=== PATIENT | female | born 2000 | race Caucasian/White ===

== ENCOUNTER → 2018-09-30 | Outpatient (CLI) | payer OTHER ==
[~2018-09-30] MED LIST: AMOX500C2; PRD20T PO
== END ==
LOC: LAB 11:19
PROVIDERS: ATTEND Nurse Practitioner Family
DX: J02.9 Acute pharyngitis, unspecified (principal)
CPT/HCPCS: 36415; 86308

== ENCOUNTER 2018-10-01 14:44 | Emergency (ER) | payer OTHER ==
[~2018-10-01] VITALS: Ht 157.5 cm; Wt 71.7 kg
[2018-10-01] MEDS ORDERED: AMOX500C2 (15:01)
--- NOTE | 2018-10-01 15:10 | ED EENT ---
History of Present Illness General Chief Complaint: Oral/Throat Problems Stated Complaint: SORE THROAT Nursing Triage Note: TO TRIAGE WITH COMPLAINTS OF SORE THROAT FOR SEVERL DAYS. HAS BEEN SEEN TWICE AT A URGENT CARE AND SENT HERE FOR POSSIBLE ABSCESS. WAS STARTED ON AMOXICILLINON WEDNESDAY AND GIVEN A ROCEPHIN SHOT YESTERDAY. MONO AND STREP BOTH NEG. IBUPORFEN 400MG TAKNE AT 1330. Source: patient Exam Limitations: no limitations History of Present Illness Date Seen by Provider: Oct 01, 2018 Time Seen by Provider: 15:08 Initial Comments To ER with a sore throat since 09/28/18. She's been seen twice at urgent care for this. She was given Rocephin shot yesterday and is currently on amoxicillin. [place] and strep were both negative at the clinic. No improvement in symptoms. Still has intermittent fevers. No cough or rhinorrhea. Timing/Duration: abrupt Severity: moderate Location: throat Associated Symptoms: No cough, No fever; sore throat Allergies and Home Medications Allergies Coded Allergies: metoclopramide (Verified Allergy, Severe, RASH, 10/01/18) Home Medications Prednisone 20 Mg Tab, 40 MG PO DAILY Prescribed by: BROCK ANDRADE on 10/01/18 1521 Patient Home Medication List Home Medication List Reviewed: Yes Review of Systems Review of Systems Constitutional: see HPI Eyes: No Symptoms Reported Ears: No Symptoms Reported Nose: no symptoms reported Mouth: no symptoms reported Throat: see HPI, pain Respiratory: no symptoms reported Cardiovascular: no symptoms reported Musculoskeletal: no symptoms reported Skin: no symptoms reported Neurological: No Symptoms Reported Past Jtymtyw-Hkglad-Rfukeg Hx Patient Social History Alcohol Use: Denies Use Recreational Drug Use: No Smoking Status: Never a Smoker Recent Foreign Travel: No Contact w/Someone Who Travel: No Recent Infectious Disease Expo: No Recent Hopitalizations: No Seasonal Allergies Seasonal Allergies: No Past Medical History Surgeries: Yes (SALIVA GLAND MOVED, DENTAL) Respiratory: No Cardiac: No Neurological: No : No Last Menstrual Period: Sep 24, 2018 Genitourinary: No Gastrointestinal: No Musculoskeletal: No Endocrine: No HEENT: No Cancer: No Psychosocial: No Integumentary: No Physical Exam Vital Signs Vital Signs - First Documented 10/01/18 14:45 Temp 102.0 Pulse 134 Resp 18 B/P (MAP) 123/74 (90) Pulse Ox 98 O2 Delivery Room Air Height, Weight, BMI Height: 5'2.00" Weight: 158lbs. oz. 71.799616sc; BMI Method:Stated General Appearance: WD/WN, no apparent distress Eyes: bilateral eye normal inspection, bilateral eye PERRL, bilateral eye EOMI Ears: bilateral ear auricle normal, bilateral ear canal normal, bilateral ear TM normal Mouth/Throat: other (pharyngeal erythema, tonsillar erythema and exudate. No obvious peritonsillar exam on clinical exam.) Neck: non-tender, full range of motion, lymphadenopathy (R), lymphadenopathy (L ) Respiratory: no respiratory distress, no accessory muscle use Gastrointestinal: normal bowel sounds, non tender Neurologic/Psychiatric: alert, normal mood/affect, oriented x 3 Skin: normal color, warm/dry Progress/Results/Core Measures Results/Orders My Orders Orders - BROCK ANDRADE APRN Ct Neck (Soft Tissue) Wo (10/01/18 15:05) Dexamethasone Injection (Decadron Inject (10/01/18 15:15) Medications Given in ED Current Medications Medications Dose Ordered Sig/Ember Route Start Time Stop Time Status Last Admin Dose Admin Dexamethasone Sodium Phosphate 10 mg ONCE ONCE IM 10/01/18 15:15 10/01/18 15:16 DC 10/01/18 15:27 10 MG Vital Signs/I&O 10/01/18 14:45 Temp 102.0 Pulse 134 Resp 18 B/P (MAP) 123/74 (90) Pulse Ox 98 O2 Delivery Room Air Blood Pressure Mean: 90 Diagnostic Imaging Diagonstic Imaging: CT Comments NAME: [facility] REC#: [id number] PT STATUS: REG ER : 2000 PHYSICIAN: BROCK ANDRADE APRN ADMIT DATE: 10/01/18/ER Draft Date of Exam:10/01/18 CT NECK (SOFT TISSUE) WO PROCEDURE: CT neck soft tissue without contrast. TECHNIQUE: Multiple contiguous axial images were obtained through the neck without the use of intravenous contrast. INDICATION: Sore throat getting worse difficulty swallowing. FINDINGS: There is some prominence of the pharyngeal tissues, adenoidal and lingular tonsils, suggestive of inflammatory process. The epiglottis and epiglottic folds, however, are normal. The vocal folds were held in near apposition. The infraglottic trachea appears widely patent. The prevertebral and retropharyngeal spaces appear unremarkable. No fluid collection or abscess is apparent. No bony destructive process. IMPRESSION: [place] and adenoidal tonsillar hypertrophy with some ossicle with the suggestion of oropharyngeal edema and swelling, suggestive of an element of pharyngitis. No abscess or drainable fluid collection is found. The epiglottis is normal The larynx and trachea appear unremarkable. No fluid collection or abscess. No acute bony abnormality. Mucus retention cyst in the left maxillary but no paranasal sinusitis. Dictated on workstation # [id number] Dict: 10/01/18 1520 Trans: 10/01/18 1527 [facility] [id number] Interpreted by: JONAH HEREDIA Electronically signed by: Departure Impression Primary Impression: Acute tonsillitis Qualified Codes: J03.90 - Acute tonsillitis, unspecified Disposition: 01 HOME, SELF-CARE Condition: Stable Departure-Patient Inst. Decision time for Depature: 15:11 Referrals: NO,LOCAL PHYSICIAN (PCP/Family) Primary Care Physician Patient Instructions: Sore Throat in Adults Add. Discharge Instructions: 1. continue taking the amoxicillin 2. Start the steroids as directed today. 3. Return to ER for any concerns All discharge instructions reviewed with patient and/or family. Voiced understanding. Scripts Prednisone (Prednisone) 20 Mg Tab 40 MG PO DAILY, #6 TAB Prov: BROCK ANDRADE APRN 10/01/18 Work/School Note: Work Release Form Date Seen in the Emergency Department: Oct 01, 2018 Return to Work: Oct 04, 2018 BROCK ANDRADE APRN Oct 01, 2018 15:10
[2018-10-01] MEDS ORDERED: DEXAMETHASONE 10 MG/ML (DECADRON) 1 ML VIAL IM ONE (15:15)
[2018-10-01] MEDS ORDERED: PRD20T PO (15:21)
--- NOTE | 2018-10-01 15:27 | Diagnostic Imaging Report ---
PROCEDURE: CT neck soft tissue without contrast. TECHNIQUE: Multiple contiguous axial images were obtained through the neck without the use of intravenous contrast. INDICATION: Sore throat getting worse difficulty swallowing. FINDINGS: There is some prominence of the pharyngeal tissues, adenoidal and lingular tonsils, suggestive of inflammatory process. The epiglottis and epiglottic folds, however, are normal. The vocal folds were held in near apposition. The infraglottic trachea appears widely patent. The prevertebral and retropharyngeal spaces appear unremarkable. No fluid collection or abscess is apparent. No bony destructive process. IMPRESSION: [place] and adenoidal tonsillar hypertrophy with some ossicle with the suggestion of oropharyngeal edema and swelling, suggestive of an element of pharyngitis. No abscess or drainable fluid collection is found. The epiglottis is normal The larynx and trachea appear unremarkable. No fluid collection or abscess. No acute bony abnormality. Mucus retention cyst in the left maxillary but no paranasal sinusitis. Dictated by: Dictated on workstation # [id number]
[2018-10-01] MEDS ORDERED: ACETAMINOPHEN 500 MG TAB (TYLENOL) ONE (16:00)
[2018-10-01 16:11] VITALS: BP 142/81
--- OUTSIDE RECORDS SUMMARY | 2018-10-01 21:44 | XMS REPORT ---
Author Author [facility] Medical Staff Organization [facility] Address [address] [place] [id number] Phone [phone] Summary purpose CCDA Sent to [facility] Chief Complaint and Reason for Visit No authorized Reason for Visit (Admitting Diagnosis) is available for this visit. Problem list No authorized problems tracked for continuity of care are available for this visit. Encounters No authorized problems tracked for encounter diagnoses are available for this visit. Medications No medications recorded for this patient visit Allergies, adverse reactions, alerts No allergy information is available for this patient. Immunizations No immunizations recorded for this patient visit Relevant diagnostic tests and/or laboratory data RESULTS Reference [facility] [id number] [place] Amp Probe See Manual Report GC Amp Probe See Manual Report History of procedures Procedure Code Code Type Description Date Performed Performing Physician 54248 CPT-4 CHYLMD TRACH, DNA, AMP PROBE 03-27-2016 MARION PACE 92463 CPT-4 N.GONORRHOEAE, DNA, AMP PROB 03-27-2016 NOLANDIChristel PACE Functional status No functional or cognitive status observations are available for this visit. Vital signs No authorized vital signs are available for this visit. Social history No Social History or smoking status observations were recorded for this visit. ( Unknown if ever smoked.) Treatment Plan No treatment plan text is available for this visit. Hospital discharge instructions No discharge instruction text is available for this visit.
--- OUTSIDE RECORDS SUMMARY | 2018-10-01 21:44 | XMS REPORT ---
Author Author Senthil Barron [facility] Address [address] [place], [place] [id number] Care Team Providers Care Cotton Buyer Name Role Phone Senthil Barron PCP Allergies and Adverse Reactions Name Reaction Notes Reglan Plan of Treatment Not available. Medications Active Name Start Date Estimated Completion Date SIG Comments Tri-Sprintec (28) 0.18/0.215/0.25 mg-35 mcg (28) oral tablet take 1 tablet by oral route once daily Name Start Date Expiration Date SIG Comments Elimite 5 % topical cream 07/03/2017 07/05/2017 apply (thoroughly massage into skin from head to soles of feet) by topical route once leave on for 8-14 hr , then remove by thorough washing for 1 day clindamycin HCl 300 mg oral capsule take 1 capsule (300 mg) by oral route every 6 hours Tylenol-Codeine #3 300-30 mg oral tablet take 1 tablet by oral route every 6 hours as needed Uristat 95 mg oral tablet sulfamethoxazole-trimethoprim 800-160 mg oral tablet 08/09/2017 take 1 tablet by oral route every 12 hours for 7 days Diflucan 150 mg oral tablet 08/10/2017 take 1 tablet (150 mg) by oral route once for 1 day sulfamethoxazole-trimethoprim 800-160 mg oral tablet 04/06/2018 04/13/2018 take 1 tablet by oral route every 12 hours for 7 days Discontinued Name Start Date Discontinued Date SIG Comments amoxicillin 500 mg oral tablet 10/07/2016 07/03/2017 Take 2 tablets by mouth BID for 7 days Problem List Not available. Vital Signs Date Time BP-Sys(mm[Hg] BP-Betsy(mm[Hg]) HR(bpm) RR(rpm) Temp WT HT HC BMI BSA BMI Percentile O2 Sat(%) 09/01/2018 8:13:00 AM 108 mmHg 68 mmHg 77 bpm 14 rpm 97.9 F 161 lbs 63 in 28.5196 kg/m 1.8017 m 100 % 06/02/2018 8:38:00 AM 110 mmHg 64 mmHg 82 bpm 16 rpm 98.8 F 160 lbs 63 in 28.34 kg/m2 1.80 m2 0 % 99 % 04/06/2018 9:11:00 AM 118 mmHg 74 mmHg 79 bpm 18 rpm 98.6 F 157.125 lbs 63 in 27.8332 kg/m 1.7799 m 0 % 100 % 08/09/2017 5:06:00 PM 118 mmHg 72 mmHg 88 bpm 14 rpm 98.3 F 159.25 lbs 62 in 29.13 kg/m2 1.78 m2 92.2 % 96 % 07/12/2017 3:00:00 PM 124 mmHg 64 mmHg 91 bpm 18 rpm 98.5 F 160 lbs 63 in 28.3424 kg/m 1.7961 m 90.8 % 99 % 07/09/2017 5:42:00 PM 134 mmHg 72 mmHg 93 bpm 18 rpm 99 F 159 lbs 63 in 28.17 kg/m2 1.79 m2 90.5 % 99 % 07/03/2017 1:36:00 PM 110 mmHg 66 mmHg 75 bpm 18 rpm 98.1 F 160.375 lbs 63 in 28.4089 kg/m 1.7982 m 91 % 100 % 10/07/2016 6:14:00 PM 110 mmHg 70 mmHg 78 bpm 20 rpm 99.4 F 159.125 lbs 62 in 29.104 kg/m 1.78 m2 92.9 % 99 % Social History Name Description Comments Tobacco Never smoker Alcohol Never History of Procedures Date Ordered Description Order Status 10/18/2016 10:02 PM STREP A ASSAY W/OPTIC Reviewed 07/04/2017 12:00 AM INFLUENZA VIRUS VACCINE SPLIT VIRUS 3/> YRS IM Reviewed 07/04/2017 12:00 AM TETANUS VACCINE IM Reviewed 07/04/2017 12:00 AM VACCINE TOXOID Reviewed 07/04/2017 12:00 AM TETANUS VACCINE IM Reviewed 07/04/2017 12:00 AM VACCINE TOXOID Reviewed 07/03/2017 12:00 AM HPV VACCINE 4 VALENT IM Reviewed 08/09/2017 5:27 PM URINALYSIS AUTO W/O SCOPE Reviewed 04/06/2018 9:15 AM URINALYSIS AUTO W/O SCOPE Reviewed 04/06/2018 12:00 AM URINE BACTERIA CULTURE Reviewed 06/02/2018 12:00 AM URINALYSIS AUTO W/SCOPE Reviewed 06/02/2018 12:[address] ABD & PELVIS W/O CONTRAST Reviewed Results Summary Date and Description Results 10/18/2016 10:02 PM STREPTOCOCCUS, GROUP A CULTURE Negative 08/09/2017 5:27 PM Clarity Ur clear Urine-Color orange Glucose Ur-sCnc 100 Bilirub Ur Ql small Ketones Ur Ql Strip trace Sp Gr Ur Qn 1.020 Hgb Ur Ql Strip neg pH Ur-LsCnc 6.0 Prot Ur Ql Strip 30mg/dl Urobilinogen Ur-mCnc 1.0 Nitrite Ur Ql Strip positive WBC # Ur small 04/06/2018 9:15 AM Glucose Ur-sCnc Negative Bilirub Ur Ql Negative Ketones Ur Ql Strip Negative Sp Gr Ur Qn 1.020 Hgb Ur Ql Strip Moderate pH Ur-LsCnc 5.5 Prot Ur Ql Strip Negative Urobilinogen Ur-mCnc 0.2 Nitrite Ur Ql Strip Negative WBC # Ur Large 06/02/2018 1:35 PM COLOR YELLOW APPEARANCE CLEAR SPEC GRAV >=1.030 pH 5.5 PROTEIN NEGATIVE GLUCOSE NEGATIVE KETONE NEGATIVE BILIRUBIN NEGATIVE BLOOD NEGATIVE NITRITE NEGATIVE LEUK SCREEN NEGATIVE WBC/HPF RARE RBC/HPF NEGATIVE CASTS/LPF NEGATIVE CRYSTALS NEGATIVE MUCOUS THRDS NEGATIVE BACTERIA NEGATIVE EPITH CELLS FEW SQUAMOUS TRICHOMONAS NEGATIVE YEAST NEGATIVE CULT SET UP? NO History Of Immunizations Name Date Admin Mfg Name Mfg Code Trade Name Lot# Route Inj Vis Given Vis Pub CVX Influenza 07/04/2017 Other check examiner OT Flulaval quadrivalent [id number] Intramuscular Right Deltoid 07/06/2017 03/29/2015 158 HPV 07/06/2017 [employer] MSD Gardasil 9 [id number] Intramuscular Left Deltoid 07/06/2017 07/24/2016 165 History of Past Illness Name Date of Onset Comments No significant medical history Pharyngitis Oct 07 2016 6:16PM Body aches Oct 07 2016 6:16PM Scabies Jul 03 2017 1:43PM Encounter for administration of vaccine Jul 03 2017 1:43PM Abscess Jul 09 2017 5:44PM Follow up Jul 12 2017 3:02PM Cellulitis of hand Jul 12 2017 3:02PM Dysuria Aug 09 2017 5:11PM Right upper quadrant abdominal pain Aug 09 2017 5:11PM UTI (urinary tract infection) Aug 09 2017 5:11PM UTI (urinary tract infection) Apr 06 2018 9:13AM UTI (urinary tract infection) Jun 02 2018 8:40AM Hematuria Jun 02 2018 8:40AM History of UTI Sep 01 2018 8:16AM Payers Insurance Name Company Name Plan Name Plan Number Policy Number Policy Group Number Start Date Aetna Aetna [id number] N/A History of Encounters Visit Date Visit Type Provider 09/01/2018 Office visit Senthil Barron MD 06/02/2018 Office visit Senthil Barron MD 04/06/2018 Office visit Montserrat Guillory APRN 08/09/2017 Office visit Montserrat Guillory APRN 07/12/2017 Office visit Ryder Gentile APRN 07/09/2017 Office visit Ryder Gentile APRN 07/03/2017 Office visit 07/03/2017 Office visit Montserrat Guillory APRN 10/07/2016 Office visit Maira Cruz APRN
--- OUTSIDE RECORDS SUMMARY | 2018-10-01 21:44 | XMS REPORT ---
Author Author [facility] Medical Staff Organization [facility] Address [address] [place] [id number] Phone [phone] Care Team Providers Care Kiln Firer Helper Name Role Phone MARION ESQUIVEL PP [phone] Summary purpose CCDA Sent to [facility] Chief Complaint and Reason for Visit No [...] visit Relevant diagnostic tests and/or laboratory data No authorized results are available for this patient visit History of procedures Procedure Code Code Type Description Date Performed Performing Physician 94163 CPT-4 CULTURE, BACTERIA, OTHER 02-24-2017 MARION PACE 93081 CPT-4 SMEAR, GRAM STAIN 02-24-2017 MARION PACE Functional status No functional or cognitive [...]
--- OUTSIDE RECORDS SUMMARY | 2018-10-01 21:45 | XMS REPORT ---
Author Author Montserrat Guillory [facility] Address [address] [place], [place] [address] Care Team Providers Care Educational Resource Coordinator Name Role Phone Montserrat Guillory PCP Allergies and Adverse Reactions Name Reaction Notes Reglan Plan of Treatment Planned Activity Comments Planned Date Planned Time Plan/Goal Urine culture and sensitivity 04/06/2018 12:00 AM Medications Active Name Start Date Estimated Completion Date SIG Comments Tri-Sprintec (28) 0.18/0.215/0.25 mg-35 mcg (28) oral tablet take 1 tablet by oral route once daily sulfamethoxazole-trimethoprim 800-160 mg oral tablet 04/06/2018 04/13/2018 take 1 tablet by oral route every 12 hours for 7 days Name Start Date Expiration Date SIG Comments [...] by oral route once for 1 day Discontinued Name Start Date Discontinued Date SIG Comments amoxicillin 500 mg oral tablet 10/07/2016 07/03/2017 Take 2 tablets by mouth BID for 7 days Problem List Not available. Vital Signs Date Time BP-Sys(mm[Hg] BP-Betsy(mm[Hg]) HR(bpm) RR(rpm) Temp WT HT HC BMI BSA BMI Percentile O2 Sat(%) 04/06/2018 9:11:00 AM 118 mmHg 74 mmHg [...] rpm 98.5 F 160 lbs 63 in 28.34 kg/m2 1.80 m2 90.8 % 99 % 07/09/2017 5:42:00 PM 134 mmHg 72 mmHg 93 bpm 18 rpm 99 F 159 lbs 63 in 28.1653 kg/m 1.7905 m 90.5 % 99 % 07/03/2017 1:36:00 PM 110 mmHg 66 mmHg 75 bpm 18 rpm 98.1 F 160.375 lbs 63 in 28.41 kg/m2 1.80 m2 91 % 100 % 10/07/2016 6:14:00 PM 110 mmHg 70 mmHg 78 bpm 20 rpm 99.4 F 159.125 lbs 62 in 29.104 kg/m 1.7769 m 92.9 % 99 % Social History Name [...] 9:15 AM URINALYSIS AUTO W/O SCOPE Reviewed Results Summary Date and Description Results [...] Ql Strip Negative WBC # Ur Large History Of Immunizations Name Date Admin Mfg Name Mfg Code Trade Name Lot# Route Inj Vis Given Vis Pub CVX Influenza 07/04/2017 Other county assessor OT Flulaval quadrivalent [id number] Intramuscular Right Deltoid 07/06/2017 03/29/2015 158 HPV 07/06/2017 [employer] MSD Gardasil 9 [id number] Intramuscular Left Deltoid 07/06/2017 07/24/2016 165 History [...] (urinary tract infection) Apr 06 2018 9:13AM Payers Insurance Name Company Name Plan Name Plan Number Policy Number Policy Group Number Start Date Aetna Aetna [id number] N/A History of Encounters Visit Date Visit Type Provider 04/06/2018 Office visit Montserrat Guillory APRN 08/09/2017 Office visit Montserrat Guillory KEYBOARD OPERATOR 07/12/2017 Office visit Ryder Gentile KEYBOARD OPERATOR 07/09/2017 Office visit Ryder Gentile KEYBOARD OPERATOR 07/03/2017 Office visit 07/03/2017 Office visit Montserrat Guillory KEYBOARD OPERATOR 10/07/2016 Office visit Maira Cruz KEYBOARD OPERATOR
--- OUTSIDE RECORDS SUMMARY | 2018-10-01 21:45 | XMS REPORT ---
Author Ryder Conteh Organization [facility] Address [address] [place], [place] [address] Care Team Providers Care Cutting And Splicing Supervisor Name Role Phone Ryder Gentile PCP Unavailable Allergies and Adverse Reactions Name Reaction Notes Reglan Plan of Treatment Not available. Medications Name Start Date Expiration Date SIG Comments Elimite 5 % topical cream 07/03/2017 07/05/2017 apply (thoroughly massage into skin from head to soles of feet) by topical route once leave on for 8-14 hr , then remove by thorough washing for 1 day Discontinued Name Start Date Discontinued Date SIG Comments amoxicillin 500 mg oral tablet 10/07/2016 07/03/2017 Take 2 tablets by mouth BID for 7 days Problem List Not available. Vital Signs Date Time BP-Sys(mm[Hg] BP-Betsy(mm[Hg]) HR(bpm) RR(rpm) Temp WT HT HC BMI BSA BMI Percentile O2 Sat(%) 07/09/2017 5:42:00 PM 134 mmHg 72 mmHg [...] rpm 99.4 F 159.125 lbs 62 in 29.10 kg/m2 1.78 m2 92.9 % 99 % Social [...] AM HPV VACCINE 4 VALENT IM Reviewed Results Summary Date and Description Results 10/18/2016 10:02 PM STREPTOCOCCUS, GROUP A CULTURE Negative History Of Immunizations Name Date Admin Mfg Name Mfg Code Trade Name Lot# Route Inj Vis Given Vis Pub CVX Influenza 07/04/2017 Other system planning engineer OT Flulaval Quadrivalent [id number] Intramuscular Right Deltoid 07/06/2017 03/29/2015 158 HPV 07/06/2017 [employer] MSD Gardasil 9 [id number] Intramuscular Left Deltoid 07/06/2017 07/24/2016 165 History of Past Illness Name Date of Onset Comments No significant medical history Pharyngitis Oct 07 2016 6:16PM Body aches Oct 07 2016 6:16PM Scabies Jul 03 2017 1:43PM Encounter for administration of vaccine Jul 03 2017 1:43PM Abscess Jul 09 2017 5:44PM Payers Insurance Name Company Name Plan Name Plan Number Policy Number Policy Group Number Start Date Aetna Aetna [id number] N/A History of Encounters Visit Date Visit Type Provider 07/09/2017 Office visit Ryder Gentile DOCTOR OF NURSING PRACTICE 07/03/2017 Office visit 07/03/2017 Office visit Montserrat Guillory DOCTOR OF NURSING PRACTICE 10/07/2016 Office visit Maira Cruz DOCTOR OF NURSING PRACTICE
--- OUTSIDE RECORDS SUMMARY | 2018-10-01 21:45 | XMS REPORT ---
Author Author Senthil Barron [facility] Address [address] [place], [place] [address] Care Team Providers Care Front End Developer Designer Name Role Phone Senthil Barron PCP Allergies [...] HC BMI BSA BMI Percentile O2 Sat(%) 06/02/2018 8:38:00 AM 110 mmHg 64 mmHg 82 bpm 16 rpm 98.8 F 160 lbs 63 in 28.3424 kg/m 1.7961 m 0 % 99 % 04/06/2018 9:11:00 AM 118 mmHg 74 mmHg 79 bpm 18 rpm 98.6 F 157.125 lbs 63 in 27.83 kg/m2 1.78 m2 0 % 100 % 08/09/2017 5:06:00 PM 118 mmHg 72 mmHg 88 bpm 14 rpm 98.3 F 159.25 lbs 62 in 29.1269 kg/m 1.7776 m 92.2 % 96 % 07/12/2017 3:00:00 PM [...] AM CT ABD & PELVIS W/O CONTRAST Returned Results Summary Date and Description Results 10/18/2016 [...] Route Inj Vis Given Vis Pub CVX Flulaval quad 07/04/2017 Other composite technician OT Flulaval quadrivalent [id number] Intramuscular Right Deltoid 07/06/2017 03/29/2015 158 HPV 07/06/2017 [employer] MSD Gardasil 9 [id number] Intramuscular Left Deltoid 07/06/2017 07/24/2016 165 History [...] 2018 8:40AM Hematuria Jun 02 2018 8:40AM Payers Insurance Name Company Name Plan Name Plan Number Policy Number Policy Group Number Start Date Aetna Aetna [id number] N/A History of Encounters Visit Date Visit Type Provider 06/02/2018 Office visit Senthil Barron MD 04/06/2018 Office visit Montserrat Guillory APRN 08/09/2017 Office visit Montserrat Guillory APRN 07/12/2017 Office visit Ryder Gentile APRN 07/09/2017 Office visit Ryder Gentile APRN 07/03/2017 Office visit 07/03/2017 Office visit Montserrat Guillory APRN 10/07/2016 Office visit Maira Cruz APRN
--- OUTSIDE RECORDS SUMMARY | 2018-10-01 21:45 | XMS REPORT ---
Author Author Montserrat Guillory Organization [facility] Address [address] [place], [place] [address] Care Team Providers Care Hyperbaric Technician Name Role Phone Montserrat Guillory PCP Unavailable Allergies and Adverse Reactions Name Reaction Notes Reglan Plan of Treatment Planned Activity Comments Planned Date Planned Time Plan/Goal Flu Injection 3 Years And Above [facility]# [id number] C 07/04/2017 12:00 AM Immunization administration, one injection 07/04/2017 12:00 AM Immunization administration, one injection 07/04/2017 12:00 AM Immunization administration, each additional injection 07/04/2017 12: 00 AM Immunization administration, each additional injection 07/04/2017 12: 00 AM Gardasil vaccine 07/03/2017 12:00 AM Menactra 07/04/2017 12:00 AM Medications Active Name Start Date Estimated Completion Date SIG Comments Elimite 5 % topical [...] HC BMI BSA BMI Percentile O2 Sat(%) 07/03/2017 1:36:00 PM 110 mmHg 66 mmHg [...] 10:02 PM STREP A ASSAY W/OPTIC Reviewed Results Summary Date and Description Results 10/18/2016 10:02 PM STREPTOCOCCUS, GROUP A CULTURE Negative History Of Immunizations Not available. History of Past Illness Name Date of Onset Comments No significant medical history Pharyngitis Oct 07 2016 6:16PM Body aches Oct 07 2016 6:16PM Scabies Jul 03 2017 1:43PM Encounter for administration of vaccine Jul 03 2017 1:43PM Payers Insurance Name Company Name Plan Name Plan Number Policy Number Policy Group Number Start Date Aetna Aetna [id number] N/A History of Encounters Visit Date Visit Type Provider 07/03/2017 Office visit 07/03/2017 Office visit Montserrat Guillory APRN 10/07/2016 Office visit Maira Cruz DESIGN DIRECTOR
--- OUTSIDE RECORDS SUMMARY | 2018-10-01 21:45 | XMS REPORT ---
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 MSD Gardasil 9 [id number] Intramuscular Left Deltoid 07/06/2017 07/24/2016 165 History [...] Policy Group Number Start Date Aetna Aetna [id number] N/A History of Encounters Visit Date Visit Type Provider 06/02/2018 Office visit Senthil Barron MD 04/06/2018 Office visit Montserrat Guillory APRN 08/09/2017 Office visit Montserrat Guillory APRN 07/12/2017 Office visit Ryder Gentile APRN 07/09/2017 Office visit Ryder Gentile APRN 07/03/2017 Office visit 07/03/2017 Office visit Montserrat Guillory APRN 10/07/2016 Office visit Maira Cruz APRN
--- OUTSIDE RECORDS SUMMARY | 2018-10-01 21:46 | XMS REPORT ---
Author Author Montserrat Guillory [facility] Address [address] [place], [place] [id number] Care Team Providers Care Abap Developer Name Role Phone Montserrat Guillory PCP Allergies and Adverse Reactions Name Reaction Notes Reglan Plan of Treatment Not available. Medications Active Name Start Date Estimated Completion Date SIG Comments Tri-Sprintec (28) 0.18/0.215/0.25 mg-35 mcg (28) oral tablet take 1 tablet by oral route once daily Uristat 95 mg oral tablet sulfamethoxazole-trimethoprim 800-160 mg oral tablet 08/09/2017 take 1 tablet by oral route every 12 hours for 7 days Diflucan 150 mg oral tablet 08/10/2017 take 1 tablet (150 mg) by oral route once for 1 day Name Start Date Expiration Date SIG Comments [...] oral route every 6 hours as needed Discontinued Name Start Date Discontinued Date SIG Comments amoxicillin 500 mg oral tablet 10/07/2016 07/03/2017 Take 2 tablets by mouth BID for 7 days Problem List Not available. 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 MSD Gardasil 9 [id number] Intramuscular Left Deltoid 07/06/2017 07/24/2016 165 History [...] (urinary tract infection) Aug 09 2017 5:11PM Payers Insurance Name Company Name Plan Name Plan Number Policy Number Policy Group Number Start Date Aetna Aetna [id number] N/A History of Encounters Visit Date Visit Type Provider 08/09/2017 Office visit Montserrat Guillory APRN 07/12/2017 Office visit Ryder Gentile APRN 07/09/2017 Office visit Ryder Gentile APRN 07/03/2017 Office visit 07/03/2017 Office visit Montserrat Guillory APRN 10/07/2016 Office visit Maira Cruz APRN
--- OUTSIDE RECORDS SUMMARY | 2018-10-01 21:46 | XMS REPORT ---
Author Author Maira Cruz [facility] Address [address] [place], [place] [phone] Care Team Providers Care Urgent Care Physician Name Role Phone Maira Cruz PCP Unavailable Allergies and Adverse Reactions Name Reaction Notes Reglan Plan of Treatment Not available. Medications Active Name Start Date Estimated Completion Date SIG Comments amoxicillin 500 mg oral tablet 10/07/2016 Take 2 tablets by mouth BID for 7 days Problem List Not available. Vital Signs Date Time BP-Sys(mm[Hg] BP-Betsy(mm[Hg]) HR(bpm) RR(rpm) Temp WT HT HC BMI BSA BMI Percentile O2 Sat(%) 10/07/2016 6:14:00 PM 110 mmHg 70 mmHg 78 bpm 20 rpm 99.4 F 159.125 lbs 62 in 29.10 kg/m2 1.78 m2 92.9 % 99 % Social History Name Description Comments Tobacco Never smoker Alcohol Never History of Procedures Date Ordered Description Order Status 10/18/2016 10:02 PM STREP A ASSAY W/OPTIC Reviewed Results Summary Data and Description Results 10/18/2016 10:02 PM STREPTOCOCCUS, GROUP A CULTURE Negative History Of Immunizations Not available. History of Past Illness Name Date of Onset Comments No significant medical history Pharyngitis Oct 07 2016 6:16PM Body aches Oct 07 2016 6:16PM Payers Insurance Name Company Name Plan Name Plan Number Policy Number Policy Group Number Start Date Aetna Aetna [id number] N/A History of Encounters Visit Date Visit Type Provider 10/07/2016 Office visit Maira Cruz CABLE TESTERS HELPER
--- OUTSIDE RECORDS SUMMARY | 2018-10-01 21:46 | XMS REPORT ---
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 MSD Gardasil 9 [id number] Intramuscular Left Deltoid 07/06/2017 07/24/2016 165 History of Past Illness Name Date of Onset Comments No significant medical history Pharyngitis Oct 07 2016 6:16PM Body aches Oct 07 2016 6:16PM Scabies Jul 03 2017 1:43PM Encounter for administration of vaccine Jul 03 2017 1:43PM Payers Insurance Name Company Name Plan Name Plan Number Policy Number Policy Group Number Start Date Aetna Aetna [id number] N/A History of Encounters Visit Date Visit Type Provider 07/03/2017 Office visit 07/03/2017 Office visit Montserrat Guillory APRN 10/07/2016 Office visit Maira Cruz APRN
--- OUTSIDE RECORDS SUMMARY | 2018-10-01 21:46 | XMS REPORT ---
Author Author Ryder Gentile Organization [facility] Address [address] [place], [place] [phone] Care Team Providers Care Course Instructor Name Role Phone Ryder Gentile PCP Unavailable Allergies and Adverse Reactions Name Reaction Notes Reglan Plan of Treatment Not available. 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 MSD Gardasil 9 [id number] Intramuscular Left Deltoid 07/06/2017 07/24/2016 165 History of Past Illness Name Date of Onset Comments No significant medical history Pharyngitis Oct 07 2016 6:16PM Body aches Oct 07 2016 6:16PM Scabies Jul 03 2017 1:43PM Encounter for administration of vaccine Jul 03 2017 1:43PM Abscess Jul 09 2017 5:44PM Follow up Jul 12 2017 3:02PM Cellulitis of hand Jul 12 2017 3:02PM Payers Insurance Name Company Name Plan Name Plan Number Policy Number Policy Group Number Start Date Aetna Aetna [id number] N/A History of Encounters Visit Date Visit Type Provider 07/12/2017 Office visit Ryder Gentile WALLPAPER INSTALLER 07/09/2017 Office visit Ryder Gentile APRN 07/03/2017 Office visit 07/03/2017 Office visit Montserrat Guillory WALLPAPER INSTALLER 10/07/2016 Office visit Maira Cruz WALLPAPER INSTALLER
--- OUTSIDE RECORDS SUMMARY | 2018-10-01 21:46 | XMS REPORT | Continuity of Care Document ---
Author Author [facility] Organization [facility] Address Unknown Phone Unavailable Allergies There is no data. Medications There is no data. Problems Date Dx Coded Attending Type Code Diagnosis Diagnosed By 03/27/2016 SANJEEV VAZMARION Z30.9 Encounter for contraceptive management, unspecified 02/24/2017 SANJEEV VAZMARION N89.8 Other specified noninflammatory disorders of vagina 01/04/2018 SOUMYA ESQUIVELChristel Pineda N92.6 Irregular menstruation, unspecified 01/04/2018 SANJEEV VAZMARION Z30.41 Encounter for surveillance of contraceptive pills Procedures Code [place] [address] CHYLMD TRACH DNA AMP PROBE [facility] 03/27/2016 08721 N.GONORRHOEAE DNA AMP PROB [facility] 03/27/2016 17952 CULTURE OTHR SPECIMN AEROBIC [facility] 02/24/2017 08557 SMEAR GRAM STAIN [facility] 02/24/2017 87048 COMPREHEN METABOLIC PANEL [facility] 01/04/2018 76399 ASSAY THYROID STIM HORMONE [facility] 01/04/2018 06364 COMPLETE CBC W/AUTO DIFF WBC [facility] 01/04/2018 13748 CHYLMD TRACH DNA AMP PROBE [facility] 01/04/2018 15280 N.GONORRHOEAE DNA AMP PROB [facility] 01/04/2018 Results Test Result Range GC/Chlamydia RNA Probe - 04/06/16 03:59 Chlamydia Amp Probe SMR GC Amp Probe SMR Encounters ACCT No. Visit Date/Time Discharge Status Pt. Type Provider Facility Loc./Unit Complaint [id number] 01/04/2018 11:40:00 01/04/2018 11:40:00 DIS [facility] [id number] 02/24/2017 13:11:00 02/24/2017 13:11:00 DIS Outpatient SANJEEV VAZ [facility] LAB [id number] 03/27/2016 17:38:00 03/27/2016 17:38:00 [facility] [id number] 09/01/2018 09:09:13 09/01/2018 23:59:59 CLS Outpatient Senthil Barron [id number] 06/02/2018 09:00:49 06/02/2018 23:59:59 CLS Outpatient Senthil Barron [id number] 08/09/2017 17:59:16 08/09/2017 23:59:59 CLS Outpatient Montserrat Guillory [id number] 07/12/2017 15:47:39 07/12/2017 23:59:59 CLS Outpatient Ryder Gentile [id number] 07/09/2017 18:38:53 07/09/2017 23:59:59 CLS Outpatient Ryder Gentile [id number] 07/03/2017 13:26:11 07/03/2017 23:59:59 CLS Outpatient Montserrat Guillory [id number] 10/08/2016 09:17:48 10/08/2016 23:59:59 CLS Outpatient Maira Cruz [facility] 01/07/2018 02:37:29 ACT Document Registration [id number] 10/01/2018 14:45:00 10/01/2018 16:11:00 DIS Emergency BROCK ANDRADE APRN [facility] ER SORE THROAT [id number] 09/30/2018 11:19:00 ACT Outpatient ADDIE GONZALEZ [facility] LAB SORE THROAT
== END 2018-10-01 16:11 | disposition home or self-care (01) ==
LOC: EDUNIT# 14:44 → ER 14:45
DX: J03.90 Acute tonsillitis, unspecified (principal); Z88.8 Allergy status to other drugs, medicaments and biological substances; Z90.89 Acquired absence of other organs
CPT/HCPCS: 70490

== ENCOUNTER 2018-10-06 21:21 | Emergency (ER) | payer OTHER ==
[~2018-10-06] VITALS: Ht 160 cm; Wt 71.2 kg
--- OUTSIDE RECORDS SUMMARY | 2018-10-06 21:27 | XMS REPORT | Continuity of Care Document ---
Author Author [facility] Address Unknown Phone Unavailable Allergies Active Description Code Type Severity Reaction Onset Reported/Identified Relationship to Patient Clinical Status Yes metoclopramide [id number] Drug Allergy Severe RASH 10/01/2018 Medications There is no data. Problems Date Dx Coded Attending Type Code Diagnosis Diagnosed By 03/27/2016 MARION ESQUIVEL Z30.9 Encounter for contraceptive management, unspecified 02/24/2017 MARION ESQUIVEL N89.8 Other specified noninflammatory disorders of vagina 01/04/2018 MARION ESQUIVEL N92.6 Irregular menstruation, unspecified 01/04/2018 MARION ESQUIVEL Z30.41 Encounter for surveillance of contraceptive pills 10/03/2018 BROCK ANDRADE APRN Ot J02.9 ACUTE PHARYNGITIS, UNSPECIFIED 10/03/2018 BROCK ANDRADE APRN Ot J03.90 ACUTE TONSILLITIS, UNSPECIFIED 10/03/2018 BROCK ANDRADE APRN Ot Z88.8 ALLERGY STATUS TO OTH DRUG/MEDS/BIOL SUB 10/03/2018 BROCK ANDRADE APRN Ot Z90.89 ACQUIRED ABSENCE OF OTHER ORGANS 10/03/2018 ADDIE GONZALEZ-C Ot J02.9 ACUTE PHARYNGITIS, UNSPECIFIED 10/06/2018 ADDIE GONZALEZ-C Ot J02.9 ACUTE PHARYNGITIS, UNSPECIFIED Procedures Code Description [place] [address] CHYLMD TRACH DNA AMP PROBE [employer] [facility] [facility], MARDIE A 03/27/2016 48790 N.GONORRHOEAE DNA AMP PROB [facility], MARDIE A 03/27/2016 28503 CULTURE OTHR SPECIMN AEROBIC [facility], MARDIE A 02/24/2017 63953 SMEAR GRAM STAIN [facility], MARDIE A 02/24/2017 63497 COMPREHEN METABOLIC PANEL [facility], MARDIE A 01/04/2018 16987 ASSAY THYROID STIM HORMONE MARION ESQUIVEL 01/04/2018 27569 COMPLETE CBC W/AUTO DIFF WBC MARION ESQUIVEL 01/04/2018 03829 CHYLMD TRACH DNA AMP PROBE MARION ESQUIVEL 01/04/2018 02099 N.GONORRHOEAE DNA AMP PROB MARION ESQUIVEL 01/04/2018 Results Test Result Range GC/Chlamydia RNA Probe - 04/06/16 03:59 Chlamydia Amp Probe SMR GC Amp Probe SMR Serum heterophile antibody titer - 09/30/18 11:35 Serum heterophile antibody titer NEGATIVE NEGATIVE Encounters ACCT No. Visit Date/Time Discharge Status Pt. Type Provider Facility Loc./Unit Complaint [id number] 01/04/2018 11:40:00 01/04/2018 11:40:00 DIS Outpatient [facility] LAB [id number] 02/24/2017 13:11:00 02/24/2017 13:11:00 DIS Outpatient [facility] LAB [id number] 03/27/2016 17:38:00 03/27/2016 17:38:00 DIS Outpatient [facility] OTHER [id number] 09/01/2018 09:09:13 09/01/2018 23:59:59 CLS Outpatient Senthil Barron [id number] 06/02/2018 09:00:49 06/02/2018 23:59:59 CLS Outpatient Senthil Barron [id number] 08/09/2017 17:59:16 08/09/2017 23:59:59 CLS Outpatient Montserrat Guillory [id number] 07/12/2017 15:47:39 07/12/2017 23:59:59 CLS Outpatient Ryder Gentile [id number] 07/09/2017 18:38:53 07/09/2017 23:59:59 CLS Outpatient Ryder Gentile [id number] 07/03/2017 13:26:11 07/03/2017 23:59:59 CLS Outpatient Montserrat Guillory [id number] 10/08/2016 09:17:48 10/08/2016 23:59:59 CLS Outpatient Maira Cruz [id number] 01/07/2018 02:37:29 ACT Document Registration [id number] 10/01/2018 14:45:00 10/01/2018 16:11:00 DIS Outpatient BROCK ANDRADE APRN [facility] ER SORE THROAT [id number] 09/30/2018 11:19:00 09/30/2018 23:59:59 CLS Outpatient ADDIE GONZALEZ-Stacy [facility] LAB SORE THROAT [id number] 10/06/2018 21:22:00 ACT Emergency MADISON GOLDSTEIN, LUCIANO Santos [facility] ER DIARRHEA
[2018-10-06] MEDS ORDERED: ONDA4TAB11 PO (22:03)
--- NOTE | 2018-10-06 22:03 | ED GI ---
General Stated Complaint: DIARRHEA Source of Information: Patient, Other Exam Limitations: No Limitations History of Present Illness Date Seen by Provider: Oct 06, 2018 Time Seen by Provider: 21:44 Initial Comments Patient presents to ER by private conveyance with chief complaint of about a week now she's been having some upper respiratory sore throat and nasal congestion viral infection symptoms. She went to 5 days ago to the urgent care had a negative flu and strep. She was put on antibiotic sent anyways. She did not feel any better so she presented to the ER and at that time was put on some steroids. Her symptoms are not improved so she went to urgent care again this morning and they stopped her steroids and antibiotic because in the last 2 days she's developed some diarrhea with some streaks of blood flecked in her stool. She started using Imodium today she's used 3 tablets with no improvement. She still able to drink she's having mild nausea but no vomiting. No rash. No objective or subjective fevers. Lots of sick contacts. No history of abdominal surgeries or significant medical problems. Allergies and Home Medications Allergies Coded Allergies: metoclopramide (Verified Allergy, Severe, RASH, 10/01/18) Home Medications Prednisone 20 Mg Tab, 40 MG PO DAILY Prescribed by: BROCK ANDRADE on 10/01/18 1521 Patient Home Medication List Home Medication List Reviewed: Yes Review of Systems Review of Systems Constitutional: No chills, No diaphoresis EENTM: No Blurred Vision, No Double Vision Respiratory: Denies Cough, Denies Shortness of Air Cardiovascular: Denies Chest Pain, Denies Lightheadedness Gastrointestinal: See HPI; Denies Abdomen Distended; Abdominal Pain (diffuse); Denies Constipated; Diarrhea, Nausea, Poor Fluid Intake; Denies Vomiting Genitourinary: Denies Burning, Denies Discharge Musculoskeletal: No back pain, No joint pain Past Upksiwl-Yzkjea-Dywvtd Hx Patient Social History Alcohol Use: Denies Use Recreational Drug Use: No Smoking Status: Never a Smoker Recent Foreign Travel: No Contact w/Someone Who Travel: No Recent Hopitalizations: No Seasonal Allergies Seasonal Allergies: No Past Medical History Surgeries: Yes (SALIVA GLAND MOVED, DENTAL) Respiratory: No Cardiac: No Neurological: No Genitourinary: No Gastrointestinal: No Musculoskeletal: No Endocrine: No HEENT: No Cancer: No Psychosocial: No Integumentary: No Physical Exam Vital Signs Capillary Refill : Height/Weight/BMI Height: 5'2.00" Weight: 158lbs. oz. 71.147354iv; BMI Method:Stated General Appearance: WD/WN, no apparent distress HEENT: PERRL/EOMI, normal ENT inspection, TMs normal, pharynx normal ( oropharynx is only mildly dry) Neck: non-tender, full range of motion, normal inspection Respiratory: chest non-tender, lungs clear, normal breath sounds, no respiratory distress, no accessory muscle use Cardiovascular: normal peripheral pulses, regular rate, rhythm, no edema Peripheral Pulses: 2+ Radial Pulses (R), 2+ Radial Pulses (L) Gastrointestinal: normal bowel sounds, soft; No rebound; tenderness (diffusely tender all 4 quadrants), other (negative for Amaya sign, rebound tenderness over McBurney's point, psoas sign or other mesenteric signs.) Progress/Results/Core Measures Progress Progress Note : Time: 22:00 Progress Note Well-appearing adult with what sounds like she had a viral upper respiratory tract infection and then it is turned into a gastroenteritis/colitis. We'll encourage her to use more Imodium, drink more fluids we'll give her some Zofran and discontinue use of the steroids and antibiotics. Mild tachycardia may indicate that she's dehydrated but this point she can tolerate oral fluids and so we have discussed this and we are going to put her on outpatient oral fluid challenge. She can also follow up at [facility] as well as her primary doctor. Departure Impression Primary Impression: Gastroenteritis and colitis, viral Additional Impression: Viral upper respiratory tract infection Disposition: HOME, SELF-CARE Condition: Stable Departure-Patient Inst. Decision time for Depature: 22:01 Referrals: NO,LOCAL PHYSICIAN (PCP/Family) Primary Care Physician Patient Instructions: Viral Gastroenteritis, Adult (DC) Add. Discharge Instructions: Drink lots of fluids use a clear liquid diet until you're nausea is under control. You can use Zofran 1 tablet every 6 hours as needed for nausea. Zofran will dissolve on your tongue. Until your diarrhea resolved you can use bland non-spicy foods such as bananas, rice, applesauce and toast. Get some rest. Use the Imodium 2 tablets of first and one tablet every 4 hours until the diarrhea slows down and is no longer watery. If your diarrhea persists for more than 10 days you should follow-up with primary care doctor. If you're unable to keep up with your fluid intake or having intense, intractable pain not resolved with antacids, Tylenol or Motrin then you should follow-up in the ER. Scripts Ondansetron (Ondansetron Odt) 4 Mg Tab.rapdis 4 MG PO Q6H PRN for NAUSEA/VOMITING, #8 TAB 0 Refills Prov: LUCIANO WALLACE 10/06/18 Work/School Note: School/Childcare Release Date Seen in the Emergency Department: Oct 06, 2018 Time Dismissed from Emergency Department: 22:04 Return to School: Oct 10, 2018 Restrictions: No Restrictions LUCIANO WALLACE Oct 06, 2018 22:03
[2018-10-06] MEDS ORDERED: RX-ONDANSETRON 4 MG ODT (ZOFRAN) PPK #4 PO STA (22:10)
[2018-10-06] MEDS ORDERED: RX-ONDANSETRON 4 MG ODT (ZOFRAN) PPK #4 ONE (22:10)
[2018-10-06 22:22] VITALS: BP 125/93
== END 2018-10-06 22:23 | disposition home or self-care (01) ==
LOC: EDUNIT# 21:21 → ER 21:22
DX: A08.4 Viral intestinal infection, unspecified (principal); K52.9 Noninfective gastroenteritis and colitis, unspecified; J06.9 Acute upper respiratory infection, unspecified; Z88.8 Allergy status to other drugs, medicaments and biological substances; Z90.89 Acquired absence of other organs
CPT/HCPCS: 99283